=== PATIENT | female | born 1965 | race Caucasian/White ===

== ENCOUNTER 2019-07-01 15:27 | Emergency (ER) | payer OTHER ==
[~2019-07-01] VITALS: Ht 175.3 cm; Wt 76.2 kg
[~2019-07-01 15:27] MED LIST: ANTIVERT12.5 MG PO; CELEXA20 MG PO; GABAPENTIN300 MG PO; MAXALT10 MG PO; NORTRIPTYLINE H10 MG PO; PANTOPRAZOLE SO40 MG PO
[2019-07-01] MEDS ORDERED: B-121000 MC2 PO (16:03)
[2019-07-01] MEDS ORDERED: MAGNESIUM OXID400 M1 PO (16:03)
[2019-07-01] MEDS ORDERED: ESTRADIOL1 EAC1 TD (16:03)
[2019-07-01] MEDS ORDERED: NORCO 5-325 TA1 EACH PO (18:02)
== END 2019-07-01 18:27 | disposition home or self-care (01) ==
LOC: ED 15:27
DX: S72.354A Nondisplaced comminuted fracture of shaft of right femur, initial encounter for closed fracture (principal); S90.01XA Contusion of right ankle, initial encounter; I10 Essential (primary) hypertension; Z91.040 Latex allergy status; Z79.899 Other long term (current) drug therapy; X50.1XXA Overexertion from prolonged static or awkward postures, initial encounter
CPT/HCPCS: 73610; 99283

== ENCOUNTER 2020-11-24 17:02 | Emergency (ER) | payer OTHER, BC ==
[~2020-11-24] VITALS: Ht 175.3 cm; Wt 76.2 kg
[~2020-11-24 17:02] MED LIST changes: +B-121000 MC2 PO; +ESTRADIOL1 EAC1 TD; +MAGNESIUM OXID400 M1 PO; +NORCO 5-325 TA1 EACH PO
--- OUTSIDE RECORDS SUMMARY | 2020-11-24 17:04 | XMS ---
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 ECody VISIT COUNT (12 MO.) 2 [facility] TOTAL 2 NOTE: Visits indicate total known visits. ED/UCC VISIT TRACKING (12 MO.) 11/24/2020 17:02 [facility] OR TYPE: Emergency COMPLAINT: - BLOOD PRESSURE PROBLEM 11/23/2020 17:14 [facility] OR TYPE: Emergency COMPLAINT: - BLOOD PRESSURE PROBLEM,NAUSEA INPATIENT VISIT TRACKING (12 MO.) No inpatient visits to display in this time frame [email or web address]
[2020-11-24] MEDS ORDERED: GABAPENTIN100 MG PO (17:47)
[2020-11-24] MEDS ORDERED: METOPROLOL SUCC25 MG PO (19:19)
--- NOTE | 2020-11-25 23:51 | EKG ---
[facility] [address] [facility] [place], [place] [address] Signed Normal sinus rhythm Normal ECG No previous ECGs available Confirmed by BERNIE BACON MD ([id number]) on 11/25/2020 11:51:47 PM Electronically Signed By: BERNIE BACON MD 11/25/202350 PATIENT NAME: ADDISON MEJÍA Electrocardiogram DATE OF : 67 PHYSICIAN: BERNIE BACON MD REPORT #: [id number] REPORT IS CONFIDENTIAL AND NOT TO BE RELEASED WITHOUT AUTHORIZATION
== END 2020-11-24 20:28 | disposition home or self-care (01) ==
LOC: ED 17:02
DX: I10 Essential (primary) hypertension (principal); Z91.040 Latex allergy status; Z79.899 Other long term (current) drug therapy
CPT/HCPCS: 70450; 80053; 84484; 85025; 93005; 93010; 96374; 96375; 99284-25; J1200; J1885; J2060; J2765

== ENCOUNTER 2024-05-21 06:30 | Day surgery (SDC) | payer OTHER ==
[~2024-05-21] VITALS: Ht 172.7 cm; Wt 78.5 kg
[~2024-05-21 06:30] MED LIST changes: +DULOXETINE HCL60 MG PO; +FLUTICASONE PRO16 GM NAS; +GABAPENTIN100 MG PO; +MAG GLYCINATE100 MG PO; +METOPROLOL SUCC25 MG PO; +MIDAZOLAM HCL 5 MG/5 ML VIAL IV PRN; +OLOPATADINE HCL5 ML OP; +ROSUVASTATIN CA20 MG PO; +TIZANIDINE HCL4 M1; +VITAMIN D325 MC2 PO; +fentaNYL citrate 100 MCG/2 ML VIAL IV PRN
[2024-05-21] MEDS ORDERED: MIDAZOLAM HCL 5 MG/5 ML VIAL ONE (06:45)
[2024-05-21] MEDS ORDERED: ondansetron HCL 4 MG/2 ML VIAL IV ONE (06:45)
[2024-05-21] MEDS ORDERED: fentaNYL citrate 100 MCG/2 ML VIAL ONE (06:45)
[2024-05-21 06:49] VITALS: BP 141/78
[2024-05-21] MEDS ORDERED: CYMBALTA20 MG PO (06:52)
[2024-05-21] MEDS ORDERED: PEPCID20 MG PO (06:52)
[2024-05-21] MEDS ORDERED: LIDOCAINE HCL 1% 5 ML SDV INJ ONE (07:00)
[2024-05-21] MEDS ORDERED: LACTATED RINGER'S 1,000 ML IV SCH (07:00)
[2024-05-21] MEDS ORDERED: IBLOOD GLUCOSE TEST STRIP 1 EA TEST VI PRN (07:00)
--- NOTE | 2024-05-21 08:08 | NUR ---
05/21/24 0808 Sheets,Kathie 0802 PT ARRIVED TO PACU ON 3L VIA NC, PT WAKES TO VERBAL STIMULI AND DENIES CONCERNS. PT ENCOURAGED TO PASS GAS NEEDED. PT EASILY FALLS BACK TO SLEEP. 0807 SNORING NOTED AND HOB INCREASED SLIGHTLY, PT PASS GAS OFF AND ON.
[2024-05-21 08:41] VITALS: BP 128/79
--- NOTE | 2024-05-22 06:30 | OR ---
[facility] [address] [place], [place] [address] Signed DATE OF OPERATION: 05/21/2024 SURGEON: Santino Cloud MD PREOPERATIVE DIAGNOSES: 1. Lower abdominal pain. 2. Nausea. 3. Constipation. 4. Hemorrhoids. 5. Personal history of colonic polyps. 6. Mother with a history of colonic polyps. POSTOPERATIVE DIAGNOSIS: Unremarkable colonoscopy. PROCEDURES: Colonoscopy with random cold biopsies of the terminal ileum, right colon, transverse colon, left colon, sigmoid colon and rectum. INDICATIONS: Ale is a 58-year-old female, asked to see me for a colonoscopy. She has had a lot of trouble over the years with lower abdominal pain, nausea, back pain and chronic constipation. She talks about heartburn, epigastric abdominal pain and other issues. She went to see her learning technologies specialist, Dr. Molina Esparza back in 2016. She had both upper and lower endoscopy. She thinks everything was fine except there maybe some external hemorrhoids. She describes a lot of anxiety associated with her symptoms. We are very short of doctors and nurses throughout the country including our area. She was asked to see me as a local general surgeon for a colonoscopy with biopsies. She understands that the evaluation for constipation can be quite extensive and usually would go to a colorectal surgeon or a learning technologies specialist. She tells me there is no family history of colon cancer. However, her mother had colonic polyps. Ale tells me she has had some colonic polyps as well. She is familiar with MiraLAX and uses it intermittently. She worries about a bowel obstruction. In the office, I had given her a pamphlet on colonoscopy. We had reviewed the nature of the test. There is risk including, but not limited to gas bloating, crampy abdominal pain, bleeding, perforation requiring surgery, and missed diagnosis. We had reviewed the written instructions for the bowel prep line by line. Again, she is very familiar with MiraLAX and Dulcolax tablets. We also reviewed the need for IV conscious sedation. She had expressed understanding and wished to proceed. She understands an adult person has to take her home afterwards. Electronically Signed By: SANTINO CLOUD MD 05/22/24 0630 PATIENT NAME: ALE MEJÍA OPERATIVE REPORT DATE OF : 67 REPORT #: [id number] PHYSICIAN: SANTINO CLOUD MD PCP: FORTINO MAN MD REPORT IS CONFIDENTIAL AND NOT TO BE RELEASED WITHOUT AUTHORIZATION [facility] [address] [place], [place] [address] Signed DESCRIPTION OF PROCEDURE: Ale was a little nauseated, so we gave her some Zofran before we started. She was taken into our endoscopy suite and placed in the left lateral decubitus position. She was given IV Versed and fentanyl to cover the case. A digital rectal exam was performed and she does have two small external hemorrhoids on either side of the anus. She had good sphincter tone. There were no masses. The adult colonoscope was introduced and advanced under direct visualization of the camera without difficulty. Her prep was quite excellent. We could easily see the appendiceal orifice and the ileocecal valve. We turned the scope and went up in the terminal ileum about 10 to 12 cm. It looks quite healthy. We went ahead and took random cold biopsies throughout the terminal ileum and colon as described above. We saw no polyps. There was no diverticulosis. Upon retroflexion of the scope, there were no internal hemorrhoids or pathology above the anal canal. After this, the gas was suctioned out and the colonoscope removed. Ale tolerated the procedure quite well. RECOMMENDATIONS: I will see Ale back in my office in 7 to 14 days to review her results. I suspect she has a component of irritable bowel syndrome. Santino Cloud MD ALB/MODL /[id number] cc: MD Santino Sotelo MD Copies: FORTINO MAN MD, ANDREW L MD ~ Electronically Signed By: SANTINO CLOUD MD 05/22/24 0630 PATIENT NAME: ALE MEJÍA OPERATIVE REPORT DATE OF : 67 REPORT #: [id number] PHYSICIAN: SANTINO CLOUD MD PCP: FORTINO MAN MD REPORT IS CONFIDENTIAL AND NOT TO BE RELEASED WITHOUT AUTHORIZATION
--- NOTE | 2024-05-24 16:28 | PATH ---
[facility] [address] [facility] [place], [place] [address] Signed SPECIMEN(S): A TERMINAL ILEUM BIOPSY SPECIMEN(S): B ASCENDING COLON BIOPSY SPECIMEN(S): C TRANSVERSE COLON BIOPSY SPECIMEN(S): D DESCENDING COLON BIOPSY SPECIMEN(S): E SIGMOID BIOPSY SPECIMEN(S): F RECTUM BIOPSY SPECIMEN SOURCE: A. TERMINAL ILEUM BIOPSY B. ASCENDING COLON BIOPSY C. TRANSVERSE COLON BIOPSY D. DESCENDING COLON BIOPSY E. SIGMOID BIOPSY F. RECTUM BIOPSY CLINICAL HISTORY: Chronic abdominal pain, nausea cons. FINAL PATHOLOGIC DIAGNOSIS: A. Terminal ileum, biopsy: - Small bowel mucosa with no significant pathologic changes B. Colon, ascending, biopsy: - Colonic mucosa with no significant pathologic changes C. Colon, transverse, biopsy: - Colonic mucosa with no significant pathologic changes D. Colon, ascending, biopsy: - Colonic mucosa with no significant pathologic changes E. Colon, sigmoid, biopsy: - Colonic mucosa with no significant pathologic changes F. Rectum, biopsy: - Colonic mucosa with no significant pathologic changes BRP MICROSCOPIC EXAMINATION: Histologic sections of all submitted blocks are examined by light microscopy. These findings, together with the gross examination, support the pathologic diagnosis. GROSS DESCRIPTION: A. The specimen, labeled and designated "Miguelito terminal ileum biopsy," is received in formalin and consists of one bhandari soft tissue fragment, 0.2 cm. PATIENT NAME: ADDISON MEJÍA PATHOLOGY DATE OF : 67 REPORT #: [id number] PHYSICIAN: KAYE PATHOLOGY PCP: FORTINO MAN MD REPORT IS CONFIDENTIAL AND NOT TO BE RELEASED WITHOUT AUTHORIZATION [facility] [address] [place], [place] [address] Signed Entirely submitted in (A1). B. The specimen, labeled and designated "Mejía, ascending colon biopsy," is received in formalin and consists of one bhandari soft tissue fragment, 0.2 cm. Entirely submitted in (B1). C. The specimen, labeled and designated "Mejía, transverse colon biopsy," is received in formalin and consists of one bhandari soft tissue fragment, 0.3 cm. Entirely submitted in (C1). D. The specimen, labeled and designated "Mejía, descending colon biopsy," is received in formalin and consists of one bhandari soft tissue fragment, 0.3 cm. Entirely submitted in (D1). E. The specimen, labeled and designated "Mejía, sigmoid biopsy," is received in formalin and consists of one bhandari soft tissue fragment, 0.3 cm. Entirely submitted in (E1). F. The specimen, labeled and designated "Mejía, rectum biopsy," is received in formalin and consists of one bhandari soft tissue fragment, 0.3 cm. Entirely submitted in (F1). VB (under the direct supervision of a pathologist) The Gross Description was prepared using a voice recognition system. The report was reviewed for accuracy; however, sound-alike word errors, addition and/or deletions may occur. If there is any question about this report, please contact Client Services. ADDITIONAL NOTES: Immunohistochemical and/or in situ hybridization studies if performed in this case included appropriate positive controls that reacted as expected. This test was developed and its performance characteristics determined by [facility]. It has not been cleared or approved by the U.S. Food and Drug Administration. The FDA has determined that such clearance or approval is not necessary. This test is used for clinical purposes. It should not be regarded as investigational or for research. [facility] is certified under the Clinical Laboratory Improvement Amendments of 1988 (CLIA) as qualified to perform high complexity clinical laboratory testing. PERFORMING LABORATORY: Technical component was performed by [facility], [address] [place] [address] (CLIA# [id number]). Professional interpretation was performed by [facility] [address] [facility] [id number] PATIENT NAME: ADDISON MEJÍA PATHOLOGY DATE OF : 67 REPORT #: [id number] PHYSICIAN: KAYE DAUGHERTY PCP: FORTINO MAN MD REPORT IS CONFIDENTIAL AND NOT TO BE RELEASED WITHOUT AUTHORIZATION [facility] [address] [facility] [place], [place] [address] Signed Diagnostician: Abelardo Mejía MD Pathologist Electronically Signed 05/24/2024 Copies: ~ PATIENT NAME: ADDISON MEJÍA PATHOLOGY DATE OF : 67 REPORT #: [id number] PHYSICIAN: KAYE DAUGHERTY PCP: FORTINO MAN MD REPORT IS CONFIDENTIAL AND NOT TO BE RELEASED WITHOUT AUTHORIZATION
== END 2024-05-21 08:53 | disposition home or self-care (01) ==
LOC: OPS 06:30 → DS 06:30 → OPS 07:30
PROVIDERS: ATTEND Colon & Rectal Surgery
PROC: 0DBL8ZX Excision of Transverse Colon, Via Natural or Artificial Opening Endoscopic, Diagnostic (ICD-10-PCS; 2024-05-21)
PROC: 0DBN8ZX Excision of Sigmoid Colon, Via Natural or Artificial Opening Endoscopic, Diagnostic (ICD-10-PCS; 2024-05-21)
PROC: 0DBP8ZX Excision of Rectum, Via Natural or Artificial Opening Endoscopic, Diagnostic (ICD-10-PCS; 2024-05-21)
PROC: 0DBF8ZX Excision of Right Large Intestine, Via Natural or Artificial Opening Endoscopic, Diagnostic (ICD-10-PCS; 2024-05-21)
PROC: 0DBG8ZX Excision of Left Large Intestine, Via Natural or Artificial Opening Endoscopic, Diagnostic (ICD-10-PCS; 2024-05-21)
PROC: 0DBB8ZX Excision of Ileum, Via Natural or Artificial Opening Endoscopic, Diagnostic (ICD-10-PCS; principal; 2024-05-21 07:30)
DX: K59.09 Other constipation (principal); K64.4 Residual hemorrhoidal skin tags; I10 Essential (primary) hypertension; E78.00 Pure hypercholesterolemia, unspecified; F32.9 Major depressive disorder, single episode, unspecified; Z86.010 Personal history of colon polyps; Z83.719 Family history of colon polyps, unspecified; Z79.899 Other long term (current) drug therapy; Z91.040 Latex allergy status
CPT/HCPCS: 99153; G0500; J2250; J2405; J3010; J7121